=== PATIENT | female | born 1945 | race Hispanic/Latino ===

== ENCOUNTER 2017-04-07 11:45 | Emergency (ER) | payer MEDICARE ==
[2017-04-07 12:04] VITALS: RESP 18; TEMP 98.7
[2017-04-07 12:10] VITALS: BMI 19.3
--- NOTE | 2017-04-07 13:12 | ED PDOC ---
Arrival/HPI - General Chief Complaint: Abnormal Labs Time Seen by Provider: 04/07/17 12:17 Historian: Patient - History of Present Illness Narrative History of Present Illness (Text): 04/07/17 12:20 A 72 year old female is sent into the emergency department by PMD for anemia. Patient reports she went to her PMD for a routine blood work and today she was told to come into the emergency department. Patient is unable to tell us what her hemoglobin levels is. Patient denies any bleeding, hematochezia, hematemesis , hematuria, chest pain, shortness of breath or any other complaints at this time. PMD : Dr. Best Past Medical History - Provider Review Nursing Documentation Reviewed: Yes - Infectious Disease Hx of Infectious Diseases: None - Tetanus Immunization Tetanus Immunization: Unknown - Reproductive Menopause: Yes - Cardiac Hx Cardiac Disorders: Yes Hx Heart Murmur: Yes Hx Hypertension: Yes - Pulmonary Hx Respiratory Disorders: No - Neurological Hx Neurological Disorder: No - HEENT Hx HEENT Disorder: No - Renal Hx Renal Disorder: No - Endocrine/Metabolic Hx Endocrine Disorders: Yes Hx Diabetes Mellitus Type 2: Yes - Hematological/Oncological Hx Blood Disorders: No - Integumentary Hx Dermatological Disorder: No - Musculoskeletal/Rheumatological Hx Musculoskeletal Disorders: Yes Hx Fractures: Yes (right ankle) - Gastrointestinal Hx Gastrointestinal Disorders: No - Genitourinary/Gynecological Hx Genitourinary Disorders: No - Psychiatric Hx Psychophysiologic Disorder: No Hx Substance Use: No - Surgical History Hx Orthopedic Surgery: Yes (right ankle) - Anesthesia Hx Anesthesia Reactions: No Hx Malignant Hyperthermia: No - Suicidal Assessment Feels Threatened In Home Enviroment: No Family/Social History - Physician Review Nursing Documentation Reviewed: Yes Family/Social History: Unknown Family HX Smoking Status: Never Smoked Hx Alcohol Use: No Hx Substance Use: No Hx Substance Use Treatment: No Allergies/Home Meds Allergies/Adverse Reactions: Allergies Penicillins Allergy (Verified 04/07/17 12:04) .unknown Home Medications: Home Meds Medication Instructions Recorded Confirmed Glipizide [Glipizide ER] 2.5 mg PO BID 07/28/16 07/28/16 Hydrocortisone Ema 0.2% Cr 0.2 % TOP BID 07/28/16 07/28/16 [Westcort] Lisinopril [Zestril] 40 mg PO DAILY 07/28/16 07/28/16 Simvastatin 10 mg PO DAILY 07/28/16 07/28/16 metFORMIN [glucOPHAGE] 500 mg PO BID 07/28/16 07/28/16 Review of Systems - Review of Systems Constitutional: absent: Fevers Eyes: absent: Vision Changes ENT: absent: Sinus Congestion Respiratory: absent: SOB, Cough Cardiovascular: absent: Chest Pain Gastrointestinal: absent: Abdominal Pain, Hematochezia, Hematemesis Genitourinary Female: absent: Dysuria, Hematuria Musculoskeletal: absent: Back Pain Skin: absent: Rash Neurological: absent: Headache, Dizziness Psychiatric: absent: Depression Physical Exam Vital Signs Reviewed: Yes Vital Signs Temp Pulse Resp BP Pulse Ox 04/07/17 17:26 65 18 128/68 98 04/07/17 16:25 67 18 125/67 98 04/07/17 15:22 69 18 127/69 98 04/07/17 11:57 98.7 F 72 18 129/72 100 Temperature: Afebrile Blood Pressure: Normal Pulse: Regular Respiratory Rate: Normal Appearance: Positive for: Well-Appearing, Non-Toxic, Comfortable Pain Distress: None Mental Status: Positive for: Alert and Oriented X 3 - Systems Exam Head: Present: Atraumatic, Normocephalic Pupils: Present: PERRL Extroacular Muscles: Present: EOMI Conjunctiva: Present: Normal Mouth: Present: Moist Mucous Membranes Neck: Present: Normal Range of Motion Respiratory/Chest: Present: Clear to Auscultation, Good Air Exchange. No: Respiratory Distress, Accessory Muscle Use Cardiovascular: Present: Regular Rate and Rhythm, Normal S1, S2. No: Murmurs Abdomen: Present: Normal Bowel Sounds. No: Tenderness, Distention, Peritoneal Signs Back: Present: Normal Inspection Upper Extremity: Present: Normal Inspection. No: Cyanosis, Edema Lower Extremity: Present: Other (thin ). No: Edema Neurological: Present: GCS=15, CN II-XII Intact, Speech Normal Skin: Present: Warm, Dry, Pale. No: Rashes Psychiatric: Present: Alert, Oriented x 3, Normal Insight, Normal Concentration Medical Decision Making ED Course and Treatment: 04/07/17 12:20 Impression: A 72 year old female sent in for anemia. Differential Diagnosis include but are not limited to: anemia Plan: -- Labs -- Reassess and disposition Prior Visits: Notes and results from previous visits were reviewed. The patient last presented to the emergency department on 07/28/16 for evaluation after a fall. Progress Notes: 04/07/17 14:12 Guaiac positive brown stool. Hgb:8.7. Spoke to Dr. Mcelroy. He reports that patient's hgb last week was 9. He reports that her baseline is 10. He is requesting consult to Dr. Sanabria, GI Serial hgbs are unchanged. She is hemodynamically stable. Patient evaluated by GI and arranged for outpatient endoscopy on Monday. - Lab Interpretations Lab Results: 04/07/17 13:25 04/07/17 13:25 Lab Results 04/07/17 13:25: Blood Type A NEGATIVE, Antibody Screen Negative, Crossmatch See Detail, BBK History Checked No verified bt 04/07/17 13:25: Sodium 141, Potassium 4.0, Chloride 109 H, Carbon Dioxide 20 L, Anion Gap 16, BUN 41 H, Creatinine 1.4, Est GFR ( Amer) 45, Est GFR (Non- Af Amer) 37, Random Glucose 73, Calcium 9.3, Total Bilirubin 0.4, AST 24, ALT 28 , Alkaline Phosphatase 73, Total Protein 7.1, Albumin 3.9, Globulin 3.1, Albumin /Globulin Ratio 1.3 04/07/17 13:25: PT 10.4, INR 0.96, APTT 24.1 04/07/17 13:25: WBC 5.3 D, RBC 2.91 L, Hgb 8.7 L, Hct 27.1 L, MCV 93.1, MCH 29.9, MCHC 32.1, RDW 12.3, Plt Count 277, MPV 8.5, Gran % 57.8, Lymph % (Auto) 30.8, [place] % (Auto) 8.7 H, Eos % (Auto) 2.1, Baso % (Auto) 0.6, Gran # 3.04, Lymph # 1.6, [place] # 0.5, Eos # 0.1, Baso # 0.03 I have reviewed the lab results: Yes - Medication Orders Current Medication Orders: Discontinued Medications Sodium Chloride (Sodium Chloride 0.9%) 1,000 mls @ 999 mls/hr IV .Q1H1M STA Stop: 04/07/17 15:04 Last Admin: 04/07/17 17:10 Dose: 999 mls/hr - Scribe Statement The provider has reviewed the documentation as recorded by the Tanyaibe Adalberto Iglesias Provider Jovani Attestation: All medical record entries made by the Scribe were at my direction and personally dictated by me. I have reviewed the chart and agree that the record accurately reflects my personal performance of the history, physical exam, medical decision making, and the department course for this patient. I have also personally directed, reviewed, and agree with the discharge instructions and disposition. Disposition/Present on Arrival - Present on Arrival Any Indicators Present on Arrival: No History of DVT/PE: No History of Uncontrolled Diabetes: No Urinary Catheter: No History of Decub. Ulcer: No History Surgical Site Infection Following: None - Disposition Have Diagnosis and Disposition been Completed?: Yes Diagnosis: Anemia Disposition: HOME/ ROUTINE Disposition Time: 17:22 Patient Plan: Discharge Patient Problems: Current Active Problems Problem Status Onset Anemia Acute Condition: GOOD Discharge Instructions (ExitCare): Anemia (ED) Additional Instructions: Follow up with Dr. Sanabria on Monday morning at Same Day surgery at [facility]. Do not eat anything after midnight. Referrals: Beto Best MD [Primary Care Provider] - Follow up with primary Ekta Sanabria MD [Medical Doctor] - Follow up with primary
[2017-04-07 13:47] LABS: BASO # 0.03 K/mm3 (0.0-2.0); BASO % 0.6 % (0.0-3.0); EOS # 0.1 (0.0-0.7); EOS % 2.1 % (1.5-5.0); GRAN # 3.04 (1.4-6.5); GRAN % 57.8 % (50.0-68.0); HEMOGLOBIN 8.7 gm/dL (12.0-16.0); LYMPH # 1.6 (1.2-3.4); LYMPH % 30.8 % (22.0-35.0); MEAN CELL VOLUME 93.1 fL (80.0-105.0); MEAN CORPUSCULAR HEMOGLOBIN 29.9 pg (25.0-35.0); MEAN CORPUSCULAR HGB CONC 32.1 g/dl (31.0-37.0); MEAN PLATELET VOLUME 8.5 fl (7.0-11.0); MONO # 0.5 (0.1-0.6); MONO % 8.7 % (1.0-6.0); PLATELET COUNT 277 10^3/uL (120.0-450.0); RBC 2.91 10^6/uL (3.5-6.1); RED CELL DISTRIBUTION WIDTH 12.3 % (11.5-14.5); WHITE BLOOD COUNT 5.3 10^3/ul (4.5-11.0)
[2017-04-07 13:57] LABS: INR 0.96 (0.93-1.08); PARTIAL THROMBOPLASTIN TIME 24.1 Seconds (23.7-30.8); PROTHROMBIN TIME 10.4 Seconds (9.9-11.8)
[2017-04-07 14:00] LABS: ALB/GLOB RATIO 1.3 (1.1-1.8); ALBUMIN 3.9 g/dL (3.0-4.8); CALCIUM 9.3 mg/dL (8.4-10.5)
[2017-04-07] MEDS ORDERED: Sodium Chloride 0.9% 1,000 ML IV STA (14:04)
[2017-04-07 15:23] VITALS: O2SAT 98
[2017-04-07 17:26] VITALS: BP 128/68; PULSE 65
--- NOTE | 2017-04-07 23:45 | CP.PCM.CON ---
History of Present Illness - History of Present Illness History of Present Illness: this patient Past Patient History - Infectious Disease Hx of Infectious Diseases: None - Tetanus Immunizations Tetanus Immunization: Unknown - Past Social History Smoking Status: Never Smoked - CARDIAC Hx Cardiac Disorders: Yes Hx Heart Murmur: Yes Hx Hypertension: Yes - PULMONARY Hx Respiratory Disorders: No - NEUROLOGICAL Hx Neurological Disorder: No - HEENT Hx HEENT Problems: No - RENAL Hx Chronic Kidney Disease: No - ENDOCRINE/METABOLIC Hx Endocrine Disorders: Yes Hx Diabetes Mellitus Type 2: Yes - HEMATOLOGICAL/ONCOLOGICAL Hx Blood Disorders: No - INTEGUMENTARY Hx Dermatological Problems: No - MUSCULOSKELETAL/RHEUMATOLOGICAL Hx Musculoskeletal Disorders: Yes Hx Fractures: Yes (right ankle) - GASTROINTESTINAL Hx Gastrointestinal Disorders: No - GENITOURINARY/GYNECOLOGICAL Hx Genitourinary Disorders: No - PSYCHIATRIC Hx Psychophysiologic Disorder: No Hx Substance Use: No - SURGICAL HISTORY Hx Orthopedic Surgery: Yes (right ankle) - ANESTHESIA Hx Anesthesia Reactions: No Hx Malignant Hyperthermia: No Meds Allergies/Adverse Reactions: Allergies Allergy/AdvReac Type Severity Reaction Status Date / Time Penicillins Allergy .unknown Verified 04/07/17 12:04 Results - Vital Signs Recent Vital Signs: Last Vital Signs Temp 98.7 F 04/07/17 11:57 Pulse 65 04/07/17 17:26 Resp 18 04/07/17 17:26 BP 128/68 04/07/17 17:26 Pulse Ox 98 04/07/17 17:26 - Labs Result Diagrams: 04/07/17 13:25 04/07/17 13:25 Labs: Laboratory Results - last 24 hr 04/07/17 04/07/17 04/07/17 13:25 13:25 13:25 WBC 5.3 D RBC 2.91 L Hgb 8.7 L Hct 27.1 L MCV 93.1 MCH 29.9 MCHC 32.1 RDW 12.3 Plt Count 277 MPV 8.5 Gran % 57.8 Lymph % (Auto) 30.8 [place] % (Auto) 8.7 H Eos % (Auto) 2.1 Baso % (Auto) 0.6 Gran # 3.04 Lymph # 1.6 [place] # 0.5 Eos # 0.1 Baso # 0.03 PT 10.4 INR 0.96 APTT 24.1 Sodium 141 Potassium 4.0 Chloride 109 H Carbon Dioxide 20 L Anion Gap 16 BUN 41 H Creatinine 1.4 Est GFR ( Amer) 45 Est GFR (Non-Af Amer) 37 Random Glucose 73 Calcium 9.3 Total Bilirubin 0.4 AST 24 ALT 28 Alkaline Phosphatase 73 Total Protein 7.1 Albumin 3.9 Globulin 3.1 Albumin/Globulin Ratio 1.3 Blood Type Antibody Screen Crossmatch BBK History Checked 04/07/17 13:25 WBC RBC Hgb Hct MCV MCH MCHC RDW Plt Count MPV Gran % Lymph % (Auto) [place] % (Auto) Eos % (Auto) Baso % (Auto) Gran # Lymph # [place] # Eos # Baso # PT INR APTT Sodium Potassium Chloride Carbon Dioxide Anion Gap BUN Creatinine Est GFR ( Amer) Est GFR (Non-Af Amer) Random Glucose Calcium Total Bilirubin AST ALT Alkaline Phosphatase Total Protein Albumin Globulin Albumin/Globulin Ratio Blood Type A NEGATIVE Antibody Screen Negative Crossmatch See Detail BBK History Checked No verified bt Assessment & Plan - Assessment and Plan (Free Text) Plan: this
== END 2017-04-07 17:45 | disposition home or self-care (01) ==
LOC: ED 11:45
DX: D64.9 Anemia, unspecified (principal); I10 Essential (primary) hypertension; R01.1 Cardiac murmur, unspecified
CPT/HCPCS: 80053; 85025; 85610; 85730; 86850; 86900; 99282; J7040

== ENCOUNTER 2017-04-10 07:16 | Day surgery (SDC) | payer MEDICARE ==
[2017-04-10] MEDS ORDERED: Lactated Ringer's 1,000 ML IV SCH (08:06)
[2017-04-10] MEDS ORDERED: Propofol 10 mg/ml Inj (20 ML) ONE (08:13)
[2017-04-10 08:14] LABS: BASO # 0.05 K/mm3 (0.0-2.0); BASO % 0.7 % (0.0-3.0); EOS # 0.3 (0.0-0.7); EOS % 3.5 % (1.5-5.0); GRAN # 4.44 (1.4-6.5); GRAN % 58.2 % (50.0-68.0); HEMOGLOBIN 8.7 gm/dL (12.0-16.0); LYMPH # 2.2 (1.2-3.4); LYMPH % 29.1 % (22.0-35.0); MEAN CELL VOLUME 93.9 fL (80.0-105.0); MEAN CORPUSCULAR HEMOGLOBIN 29.6 pg (25.0-35.0); MEAN CORPUSCULAR HGB CONC 31.5 g/dl (31.0-37.0); MONO # 0.7 (0.1-0.6); MONO % 8.5 % (1.0-6.0); PLATELET COUNT 291 10^3/uL (120.0-450.0); RBC 2.94 10^6/uL (3.5-6.1); RED CELL DISTRIBUTION WIDTH 12.4 % (11.5-14.5); WHITE BLOOD COUNT 7.6 10^3/ul (4.5-11.0)
[2017-04-10] MEDS ORDERED: Lidocaine 1% Inj (20ml) ONE (08:14)
[2017-04-10] MEDS ORDERED: Etomidate 20 mg/10ml Inj IV ONE (08:14)
[2017-04-10 10:24] VITALS: BP 125/65; PULSE 82; RESP 21; TEMP 97.5; O2SAT 99
--- NOTE | 2017-04-10 17:39 | CARD ---
APPROVED REPORT EKG Measurement Heart [id number] [id number] <Conclusion> Normal sinus rhythm Normal ECG
[2017-04-11] MEDS ORDERED: Propofol 10 mg/ml Inj (20 ML) ONE (12:13)
== END 2017-04-10 11:36 | disposition home or self-care (01) ==
LOC: ENDO 07:16
PROVIDERS: ATTEND Internal Medicine Gastroenterology
DX: K22.10 Ulcer of esophagus without bleeding (principal); K44.9 Diaphragmatic hernia without obstruction or gangrene; T18.2XXA Foreign body in stomach, initial encounter; D50.9 Iron deficiency anemia, unspecified; I10 Essential (primary) hypertension; E11.9 Type 2 diabetes mellitus without complications; Z79.84 Long term (current) use of oral hypoglycemic drugs
CPT/HCPCS: 36415; 43235; 82948; 85025; 93005; J2704; J3010; J7040; J7120

== ENCOUNTER 2017-04-11 09:01 | Day surgery (SDC) | payer MEDICARE ==
[2017-04-10 11:32] VITALS: BMI 19.1
[2017-04-11] MEDS ORDERED: Sodium Chloride 0.9% 1,000 ML IV SCH (12:30)
[2017-04-11 13:32] VITALS: BP 117/61; PULSE 75; RESP 18; TEMP 98.1; O2SAT 100
== END 2017-04-11 14:30 | disposition home or self-care (01) ==
LOC: ENDO 09:01
PROVIDERS: ATTEND Internal Medicine Gastroenterology
DX: K25.9 Gastric ulcer, unspecified as acute or chronic, without hemorrhage or perforation (principal); K29.50 Unspecified chronic gastritis without bleeding; K44.9 Diaphragmatic hernia without obstruction or gangrene; K31.89 Other diseases of stomach and duodenum; D50.9 Iron deficiency anemia, unspecified; G80.9 Cerebral palsy, unspecified; I10 Essential (primary) hypertension; I25.10 Atherosclerotic heart disease of native coronary artery without angina pectoris; E11.9 Type 2 diabetes mellitus without complications; E78.5 Hyperlipidemia, unspecified; I25.2 Old myocardial infarction; Z79.84 Long term (current) use of oral hypoglycemic drugs
CPT/HCPCS: 43239; 82948; 88305; 88342; J2704; J7040 ×2

== ENCOUNTER 2017-09-06 13:33 | Observation (INO) | payer MEDICARE, OTHER ==
[2017-09-06 13:51] VITALS: BMI 20.9
--- NOTE | 2017-09-06 14:14 | ED PDOC ---
Arrival/HPI - General Chief Complaint: Abnormal Labs Time Seen by Provider: 09/06/17 13:43 Historian: Patient - History of Present Illness Narrative History of Present Illness (Text): 09/06/17 14:04 A 72 year old female, whose past medical history includes hypertension and cholesterol problem, is accompanied by family members, and presents to the emergency department complaining of anemia. Per family, patient was taken for blood work 2 days ago. Today, PMD requested patient to go immediately to the ER due to results revealing patient has anemia. Patient has no other complaints. PMD: Dr. Best Past Medical History - Provider Review Nursing Documentation Reviewed: Yes - Infectious Disease Hx of Infectious Diseases: None - Tetanus Immunization Tetanus Immunization: Unknown - Reproductive Menopause: Yes - Cardiac Hx Cardiac Disorders: Yes Hx Heart Murmur: Yes Hx Hypertension: Yes - Pulmonary Hx Respiratory Disorders: No - Neurological Hx Neurological Disorder: No - HEENT Hx HEENT Disorder: No - Renal Hx Renal Disorder: No - Endocrine/Metabolic Hx Endocrine Disorders: Yes Hx Diabetes Mellitus Type 2: Yes - Hematological/Oncological Hx Blood Disorders: No - Integumentary Hx Dermatological Disorder: No - Musculoskeletal/Rheumatological Hx Musculoskeletal Disorders: Yes (FX RIGHT ANKLE GAIT INSTABILITY) - Gastrointestinal Hx Gastrointestinal Disorders: No - Genitourinary/Gynecological Hx Genitourinary Disorders: No - Psychiatric Hx Psychophysiologic Disorder: No Hx Substance Use: No - Surgical History Hx Orthopedic Surgery: Yes (right ankle) - Anesthesia Hx Anesthesia Reactions: No Hx Malignant Hyperthermia: No - Suicidal Assessment Feels Threatened In Home Enviroment: No Family/Social History - Physician Review Nursing Documentation Reviewed: Yes Family/Social History: No Known Family HX Smoking Status: Never Smoked Hx Alcohol Use: Yes (SOCIAL) Hx Substance Use: No Hx Substance Use Treatment: No Allergies/Home Meds Allergies/Adverse Reactions: Allergies Penicillins Allergy (Verified 09/06/17 14:07) .unknown Home Medications: Home Meds Medication Instructions Recorded Confirmed Lisinopril [Zestril] 40 mg PO DAILY 07/28/16 09/06/17 Simvastatin 10 mg PO HS 07/28/16 09/06/17 metFORMIN [glucOPHAGE] 500 mg PO BID 07/28/16 09/06/17 Furosemide [Lasix] 20 mg PO DAILY 04/07/17 09/06/17 Metoprolol Succinate [Metoprolol 25 mg PO DAILY 04/07/17 09/06/17 Succinate] diltiaZEM [Cardizem] 30 mg PO BID 04/07/17 09/06/17 Omeprazole 40 mg PO DAILY 04/11/17 09/06/17 Calcium/Chloride/Magnesium [Mag64 0 mg PO DAILY 09/06/17 09/06/17 110 MG-186.8 MG-64 MG] D3 Daily 1,000 iu PO DAILY 09/06/17 09/06/17 Glipizide [Glipizide Xl] 2.5 mg PO BID 09/06/17 09/06/17 Omeprazole 40 mg PO DAILY 09/06/17 09/06/17 Review of Systems - Physician Review All systems were reviewed & negative as marked: Yes - Review of Systems Constitutional: absent: Fevers Gastrointestinal: absent: Abdominal Pain Physical Exam Vital Signs Reviewed: Yes Vital Signs Temp Pulse Resp BP Pulse Ox 09/06/17 18:10 97.7 F 75 18 112/55 L 100 09/06/17 18:03 80 18 112/55 L 100 09/06/17 17:55 97.7 F 79 18 112/55 L 09/06/17 17:33 97.5 F L 81 18 112/55 L 100 09/06/17 13:46 97.8 F 97 H 18 125/62 99 Temperature: Afebrile Blood Pressure: Normal Pulse: Regular Respiratory Rate: Normal Appearance: Positive for: Well-Appearing Pain Distress: None Mental Status: Positive for: Alert and Oriented X 3 - Systems Exam Head: Present: Atraumatic, Normocephalic Pupils: Present: PERRL Extroacular Muscles: Present: EOMI Conjunctiva: Present: Normal Mouth: Present: Moist Mucous Membranes Neck: Present: Normal Range of Motion Respiratory/Chest: Present: Clear to Auscultation, Good Air Exchange. No: Respiratory Distress, Accessory Muscle Use Cardiovascular: Present: Regular Rate and Rhythm, Normal S1, S2. No: Murmurs Abdomen: Present: Normal Bowel Sounds. No: Tenderness, Distention, Peritoneal Signs Rectal: No: Other (brown stool, guaiac negative) Back: Present: Normal Inspection Upper Extremity: Present: Normal Inspection. No: Cyanosis, Edema Lower Extremity: Present: Normal Inspection. No: Edema Neurological: Present: GCS=15, CN II-XII Intact, Speech Normal Skin: Present: Warm, Dry, Normal Color. No: Rashes Psychiatric: Present: Alert, Oriented x 3, Normal Insight, Normal Concentration Medical Decision Making ED Course and Treatment: 09/06/17 14:08 Impression: 72 year old female accompanied by family sent in by PMD for evaluation. Physical exam is benign; rectal exam shows brown stool, guaiac negative. Plan: -- Labs -- Urinalysis -- Reassess and disposition Prior Visits: Notes and results from previous visits were reviewed. Patient was last seen in the emergency department on 04/07/2017 for evaluation due to blood work results. Patient was d/c home. Progress Notes: - Lab Interpretations Lab Results: 09/06/17 15:00 09/06/17 15:00 Lab Results 09/06/17 15:00: Blood Type A NEGATIVE, Antibody Screen Negative, Crossmatch See Detail, BBK History Checked Patient has bt 09/06/17 15:00: Sodium 142, Potassium 4.1, Chloride 112 H, Carbon Dioxide 15 L, Anion Gap 20, BUN 40 H, Creatinine 1.4 H, Est GFR ( Amer) 45, Est GFR ( Non-Af Amer) 37, Random Glucose 89, Calcium 10.0, Total Bilirubin 0.4, AST 32, ALT 26, Alkaline Phosphatase 80, Total Protein 7.7, Albumin 4.3, Globulin 3.4, Albumin/Globulin Ratio 1.3, Lipase 466 H 09/06/17 15:00: Urine Color Yellow, Urine Appearance Sl cloudy, Urine pH 6.0, Ur Specific [place] 1.015, Urine Protein Negative, Urine Glucose (UA) Negative, Urine Ketones Negative, Urine Blood Negative, Urine Nitrate Negative, Urine Bilirubin Negative, Urine Urobilinogen 0.2, Ur Leukocyte Esterase Small H, Urine RBC Negative, Urine WBC 15 - 20, Ur Epithelial Cells 10 - 12, Urine Bacteria Mod 09/06/17 15:00: PT 11.1, INR 1.02, APTT 25.7 09/06/17 15:00: WBC 7.9, RBC 3.05 L, Hgb 8.5 L, Hct 27.3 L, MCV 89.5, MCH 27.9, MCHC 31.1, RDW 14.2, Plt Count 322, MPV 8.6, Gran % 65.9, Lymph % (Auto) 24.0, [place] % (Auto) 6.9 H, Eos % (Auto) 2.3, Baso % (Auto) 0.9, Gran # 5.18, Lymph # 1.9, [place] # 0.5, Eos # 0.2, Baso # 0.07 - Medication Orders Current Medication Orders: Diltiazem HCl (Cardizem) 30 mg PO BID [facility] Last Admin: 09/07/17 10:51 Dose: 30 mg MAR Pulse and Blood Pressure Document 09/07/17 10:51 DSZ (Rec: 09/07/17 10:51 [email or web address]) Pulse Pulse Rate (60-90) 67 Blood Pressure Blood Pressure (100/60-150/90) 139/74 Sodium Chloride (Sodium Chloride 0.9%) 1,000 mls @ 100 mls/hr IV .Q10H [facility] Last Admin: 09/07/17 10:54 Dose: 100 mls/hr eMAR Start Stop Document 09/07/17 10:54 [facility] (Rec: 09/07/17 10:54 [email or web address]) Intravenous Solution Start Date 09/07/17 Start Time 10:54 Insulin Human Regular (Humulin R Low) 0 units SC ACHS [facility] PRN Reason: Protocol Last Admin: 09/07/17 08:08 Dose: Not Given Non-Admin Reason: Blood Sugar Parameter [facility] Blood Glucose Document 09/07/17 08:08 DSZ (Rec: 09/07/17 08:08 [email or web address]) Blood Glucose Finger Stick Blood Glucose (70-120) 71 Lisinopril (Zestril) 40 mg PO DAILY [facility] Last Admin: 09/07/17 10:51 Dose: 40 mg Metoprolol Succinate (Toprol Xl) 25 mg PO DAILY [facility] Last Admin: 09/07/17 10:51 Dose: 25 mg MAR Pulse and Blood Pressure Document 09/07/17 10:51 DSZ (Rec: 09/07/17 10:51 [email or web address]) Pulse Pulse Rate (60-90) 67 Blood Pressure Blood Pressure (100/60-150/90) 139/74 Polyethylene Glycol/Electrolytes (Golytely) 4,000 ml PO ONCE ONE Stop: 09/07/17 14:01 Discontinued Medications Pneumococcal Polyvalent Vaccine (Pneumovax 23 Vaccine) 0.5 ml IM .ONCE ONE Stop: 09/06/17 22:35 - Scribe Statement The provider has reviewed the documentation as recorded by the Jovani Brown Provider Scribe Attestation: All medical record entries made by the Scribe were at my direction and personally dictated by me. I have reviewed the chart and agree that the record accurately reflects my personal performance of the history, physical exam, medical decision making, and the department course for this patient. I have also personally directed, reviewed, and agree with the discharge instructions and disposition. Disposition/Present on Arrival - Present on Arrival Any Indicators Present on Arrival: No History of DVT/PE: No History of Uncontrolled Diabetes: No Urinary Catheter: No History of Decub. Ulcer: No History Surgical Site Infection Following: None - Disposition Have Diagnosis and Disposition been Completed?: Yes Diagnosis: Anemia Disposition: HOSPITALIZED Disposition Time: 06:00 Condition: STABLE
[2017-09-06 15:21] LABS: BASO # 0.07 K/mm3 (0.0-2.0); BASO % 0.9 % (0.0-3.0); EOS # 0.2 (0.0-0.7); EOS % 2.3 % (1.5-5.0); GRAN # 5.18 (1.4-6.5); GRAN % 65.9 % (50.0-68.0); HEMATOCRIT 27.3 % (36.0-48.0); LYMPH # 1.9 (1.2-3.4); MEAN CELL VOLUME 89.5 fl (80.0-105.0); MEAN CORPUSCULAR HEMOGLOBIN 27.9 pg (25.0-35.0); MEAN CORPUSCULAR HGB CONC 31.1 g/dl (31.0-37.0); MEAN PLATELET VOLUME 8.6 fl (7.0-11.0); MONO # 0.5 (0.1-0.6); MONO % 6.9 % (1.0-6.0); RED CELL DISTRIBUTION WIDTH 14.2 % (11.5-14.5); URINE BILIRUBIN NEGATIVE (NEGATIVE); URINE BLOOD NEGATIVE (NEGATIVE); URINE GLUCOSE (UA) NEGATIVE (NEGATIVE); URINE KETONE NEGATIVE (NEGATIVE); URINE LEUKOCYTE ESTERASE SMALL Leu/uL (NEGATIVE); URINE PROTEIN NEGATIVE mg/dL (<30 mg/dL); URINE UROBILINOGEN 0.2 E.U./dL (<1 E.U./dL); WHITE BLOOD COUNT 7.9 10^3/ul (4.5-11.0)
[2017-09-06 15:27] LABS: URINE COLOR YELLOW (YELLOW)
[2017-09-06 15:31] LABS: ALB/GLOB RATIO 1.3 (1.1-1.8); BILIRUBIN,TOTAL 0.4 mg/dL (0.2-1.3); TOTAL PROTEIN 7.7 g/dL (5.8-8.3)
[2017-09-06 15:35] LABS: INR 1.02 (0.93-1.08); PARTIAL THROMBOPLASTIN TIME 25.7 Seconds (25.1-36.5); POTASSIUM 4.1 mmol/L (3.6-5.0)
[2017-09-06 15:41] LABS: URINE APPEARANCE SL CLOUDY (CLEAR); URINE BACTERIA MOD (NEG); URINE RBC NEGATIVE /hpf (0-2); URINE WBC 15 - 20 /hpf (0-6)
[2017-09-06] MEDS ORDERED: Influenza Vaccine 60 mcg/0.5 mL SYR (4YR UP) IM ONE (22:34)
[2017-09-06] MEDS ORDERED: Pneumococcal 23-Valent Vaccine IM ONE (22:34)
[2017-09-06] MEDS: Insulin Reg-LOW-Coverage SC SCH (23:32)
[2017-09-07 07:41] LABS: HEMATOCRIT 29.9 % (36.0-48.0); MEAN CELL VOLUME 88.7 fl (80.0-105.0); MEAN CORPUSCULAR HEMOGLOBIN 28.8 pg (25.0-35.0); MEAN CORPUSCULAR HGB CONC 32.4 g/dl (31.0-37.0); MEAN PLATELET VOLUME 8.8 fl (7.0-11.0); RED CELL DISTRIBUTION WIDTH 13.9 % (11.5-14.5); WHITE BLOOD COUNT 6.1 10^3/ul (4.5-11.0)
[2017-09-07] MEDS: Insulin Reg-LOW-Coverage SC SCH ×4 (08:08→22:12)
[2017-09-07 08:56] LABS: ALB/GLOB RATIO 1.2 (1.1-1.8); BILIRUBIN,TOTAL 0.6 mg/dL (0.2-1.3); CALCIUM 9.4 mg/dL (8.4-10.5); POTASSIUM 4.5 mmol/L (3.6-5.0); TOTAL PROTEIN 6.3 g/dL (5.8-8.3)
[2017-09-07] MEDS ORDERED: Etomidate 20 mg/10ml Inj IV ONE (09:07)
[2017-09-07 09:09] LABS: IRON 145 ug/dL (45-180)
[2017-09-07] MEDS ORDERED: Propofol 10 mg/ml Inj (20 ML) ONE (09:24)
[2017-09-07] MEDS ORDERED: Sodium Chloride 0.9% 1,000 ML IV SCH (09:45)
--- NOTE | 2017-09-07 09:59 | HP ---
CHIEF COMPLAINT AND HISTORY OF PRESENT ILLNESS: This is a 72-year-old female who is coming into the hospital after she was found to have low hemoglobin on CBC that was done by her primary care doctor, Dr. Best. The patient denied any chest pain. No shortness of breath. No headaches. She does have a history of hypertension and dyslipidemia. She was brought in by her family. The patient has no fevers or chills. No nausea. No dysuria or frequency. No nocturia. She denies any shortness of breath with exertion. REVIEW OF SYSTEMS: All the review of symptoms are within normal limits except as mentioned. ALLERGIES: PENICILLIN. HOME MEDICATIONS: Lisinopril, simvastatin, metformin, Lasix, metoprolol, Cardizem, glipizide, and omeprazole. PAST MEDICAL HISTORY: Diabetes type 2, dyslipidemia, hypertension, and childhood polio. PAST SURGICAL HISTORY: Right ankle fracture. FAMILY HISTORY: Noncontributory. SOCIAL HISTORY: She does not smoke, drink or use drugs. PHYSICAL EXAMINATION: VITAL SIGNS: Temperature is 97.7, pulse is 75, blood pressure is 112/58, and respirations are 18. Height is 4 feet 10 inches, weight is 100 pounds, and BMI is 20.9. GENERAL: The patient lying in bed, uncomfortable, and in no acute distress. HEENT: Atraumatic and normocephalic. Anicteric sclerae. Moist mucosa. [place] conjunctivae. No oral lesions. NECK: No JVD, anterior and posterior adenopathy, thyromegaly, or bruits. CARDIOVASCULAR: S1 and S2 regular. No murmur, rubs, or gallop. LUNGS: Clear to auscultation bilaterally. No wheezes, rales, or rhonchi. ABDOMEN: Bowel sounds are positive. Soft, nontender and nondistended. No hepatosplenomegaly. No rebound and no guarding. EXTREMITIES: No cyanosis, clubbing, or edema. NEUROLOGIC: No facial asymmetry. Tongue is midline. No uvula deviation. Power is 5/5 upper extremity and lower extremity. Sensation intact in upper extremity and lower extremity. PSYCHIATRIC: She is awake, alert and oriented x3. No anxiety or depression. She has normal affect. GENITOURINARY: No CVA tenderness. VASCULAR: 2+ pulses in the carotid pulses and pedal pulses. SKIN: No erythema or nodules. SPINE: Shows normal curvature. LABORATORY DATA: White count is 7.9 and hemoglobin is 8.5, repeat is 9.7. Creatinine is 1.4. The patient's baseline creatinine is 1.4 in 04/2017. Urine shows esterase is small, RBC's is negative, WBC's is negative. ASSESSMENT: 1. Anemia, acute, unknown etiology. 2. Diabetes type 2. 3. Hypertension. 4. Dyslipidemia. 5. Mitral regurgitation. 6. Childhood polio. 7. Chronic kidney disease, stage III. PLAN: The patient is going to be admitted to the hospital. She is on lisinopril for her hypertension. She is going to continue with metoprolol. The patient is going to be on insulin sliding scale. I will hold her metformin and glipizide. She is probably n.p.o. for endoscopy today by Dr. Sanabria. The patient will need iron studies. She had been on liquid diet yesterday. She also has CKD III. We will await for the input from GI. Liu Camarillo MD
[2017-09-07] MEDS: Metoprolol Succinate 25 mg XL Tab PO SCH (10:51)
[2017-09-07] MEDS ORDERED: Peg-Electrolyte Oral Soln 4L (Golytely) PO ONE (14:00)
[2017-09-07] MEDS ORDERED: Magnesium Citrate Oral SOL (300 ml) PO ONE (19:57)
[2017-09-07] MEDS ORDERED: Bisacodyl 5mg EC Tab PO ONE (19:57)
[2017-09-08] MEDS ORDERED: Magnesium Citrate Oral SOL (300 ml) PO ONE (06:00)
[2017-09-08] MEDS ORDERED: Bisacodyl 5mg EC Tab PO ONE (06:00)
[2017-09-08 07:27] LABS: BASO # 0.05 K/mm3 (0.0-2.0); BASO % 0.7 % (0.0-3.0); EOS # 0.2 (0.0-0.7); EOS % 3.4 % (1.5-5.0); GRAN # 3.6 (1.4-6.5); HEMATOCRIT 35.2 % (36.0-48.0); LYMPH # 2.2 (1.2-3.4); LYMPH % 32.8 % (22.0-35.0); MEAN CELL VOLUME 89.6 fl (80.0-105.0); MEAN CORPUSCULAR HEMOGLOBIN 28.5 pg (25.0-35.0); MEAN CORPUSCULAR HGB CONC 31.8 g/dl (31.0-37.0); MONO # 0.6 (0.1-0.6); MONO % 9.1 % (1.0-6.0); WHITE BLOOD COUNT 6.7 10^3/ul (4.5-11.0)
[2017-09-08 07:56] LABS: ALB/GLOB RATIO 1.2 (1.1-1.8); ALKALINE PHOSPHATASE 96 U/L (38-126); ALT/SGPT 25 U/L (7-56); AST/SGOT 27 U/L (14-36); BILIRUBIN,TOTAL 0.6 mg/dL (0.2-1.3); BLOOD UREA NITROGEN 16 mg/dL (7-21); CARBON DIOXIDE 20 mmol/L (21-33); CHLORIDE 115 mmol/L (98-107); GFR AFRICAN-AMERICAN > 60; GLUCOSE,RANDOM 92 mg/dL (70-110); POTASSIUM 4.2 mmol/L (3.6-5.0); SODIUM 144 mmol/L (132-148); TOTAL PROTEIN 7.4 g/dL (5.8-8.3)
[2017-09-08] MEDS: Insulin Reg-LOW-Coverage SC SCH ×3 (08:24→17:41)
[2017-09-08] MEDS: Metoprolol Succinate 25 mg XL Tab PO SCH (09:00)
--- NOTE | 2017-09-08 12:31 | CON ---
DATE: 09/07/2017 This patient was seen and evaluated. REASON FOR CONSULTATION: Anemia, drop in blood count. HISTORY OF PRESENT ILLNESS: This is a 72-year-old patient with a past medical history of anemia, status post EGD, noticed to have Terrance ulcers. The patient did have a gastric repeat endoscopy was unable to visualize the ulceration. For gastric ulcer, the patient had been on omeprazole 40 mg daily, was found to have drop in blood count, but no obvious witnessed bleeding per rectum or melena. PAST MEDICAL HISTORY: Other past medical history is significant as above. History of diabetes mellitus, dyslipidemia, hypertension, and history of childhood polio. PAST SURGICAL HISTORY: Right ankle fracture. FAMILY HISTORY: Noncontributory. SOCIAL HISTORY: Denies smoking or alcohol. PHYSICAL EXAMINATION: VITAL SIGNS: Temperature is 97, pulse is 70, blood pressure is 118/63, respirations 20, O2 saturation 98%. HEENT: Atraumatic and anicteric. NECK: Supple. HEART: S1 and S2 heard. LUNGS: Bilateral air entry present. ABDOMEN: Soft. There is no tenderness. EXTREMITIES: No edema. No cyanosis. NEUROLOGICAL: Alert and oriented. Moves all the extremities. LABORATORY DATA: Hemoglobin 9.7 and hemoglobin initially when he came was at 8.5; hematocrit 27.3; WBC 7.9; platelets 322,000. Chemistries, BUN 40 and creatinine 1.4. IMPRESSION: This is a 72-year-old patient admitted with history of anemia, drop in blood count, no obvious bleeding, history of gastric ulcer, Terrance ulcers and gastric ulcers and the patient has been on omeprazole. The reasonable thing is to schedule for a repeat upper gastrointestinal endoscopy to further evaluate the gastric ulcer. We will also consider colonoscopy after reviewing the endoscopy report. RECOMMENDATION: 1. Continue the PPI or Protonix. 2. Advised to follow up in our office after the endoscopy evaluation. ADDENDUM: The case is discussed with the patient's brother who has been taking care of the patient well, who is also next of the kin. Thank you very much for allowing me to participate in the care of the patient. Ekta Sanabria MD
[2017-09-08] MEDS ORDERED: Propofol 10 mg/ml Inj (20 ML) ONE (13:22)
[2017-09-08] MEDS ORDERED: Midazolam 2 MG/2 ML VIAL ONE (13:22)
[2017-09-08] MEDS ORDERED: Etomidate 20 mg/10ml Inj IV ONE (13:22)
[2017-09-08 21:57] VITALS: BP 125/73; PULSE 68; RESP 18; TEMP 96.6; O2SAT 98
--- NOTE | 2017-09-09 03:27 | DS ---
HISTORY OF PRESENT ILLNESS: This is a 72-year-old female who has come into the hospital with complaints of anemia. She had an endoscopy done, which showed hiatal hernia. The patient is currently comfortable. She has colonoscopy today. If colonoscopy did not show any significant abnormality, the patient will be discharged home. PHYSICAL EXAMINATION: VITAL SIGNS: Temperature is 97.9, pulse is 75, blood pressure is 110/62, respirations 18, and O2 saturations are 98%. GENERAL: The patient is lying in bed, flat, comfortable. HEENT: No oral lesion. Anicteric sclerae. Moist mucosa. NECK: No JVD, adenopathy, or thyromegaly. CARDIOVASCULAR: S1 and S2, regular. No murmurs, rubs, or gallops. LUNGS: Clear to auscultation bilaterally. No wheeze, rales, or rhonchi. ABDOMEN: Bowel sounds are positive, soft, nontender and nondistended. EXTREMITIES: No cyanosis, clubbing or edema. ASSESSMENT: 1. Hiatal hernia. 2. Anemia from gastrointestinal bleeding. 3. Hypertension. 4. Diabetes type 2. 5. Dyslipidemia. 6. Mitral regurgitation. 7. Chronic kidney disease, stage III. 8. Childhood polio. PLAN: The patient's hemoglobin is stable at 11.2. The patient had acute kidney injury, creatinine is 1.0. She is on Cardizem. She is going to continue with metoprolol. She is on lisinopril for hypertension. She is on liquid diet. I did speak to Dr. Sanabria regarding the case yesterday. Liu Camarillo MD
== END 2017-09-08 22:05 | disposition home or self-care (01) ==
LOC: ED 13:33 → ERH 16:33 → 5RSO 19:28
PROVIDERS: ADMIT Internal Medicine Nephrology; ATTEND Internal Medicine Nephrology
DX: K92.2 Gastrointestinal hemorrhage, unspecified (principal); D50.0 Iron deficiency anemia secondary to blood loss (chronic); I12.9 Hypertensive chronic kidney disease with stage 1 through stage 4 chronic kidney disease, or unspecified chronic kidney disease; N18.3 Chronic kidney disease, stage 3 (moderate); E11.22 Type 2 diabetes mellitus with diabetic chronic kidney disease; K44.9 Diaphragmatic hernia without obstruction or gangrene; K57.30 Diverticulosis of large intestine without perforation or abscess without bleeding; K62.6 Ulcer of anus and rectum; E78.5 Hyperlipidemia, unspecified; I34.0 Nonrheumatic mitral (valve) insufficiency; K64.8 Other hemorrhoids; Z86.12 Personal history of poliomyelitis
CPT/HCPCS: 36415; 36430; 43239; 45380; 80053; 81001; 82728; 82948; 83540; 83550; 83690; 85025; 85027; 85610; 85730; 86850; 86900; 86920; 87086; 87181; 88305; 88342; 99285; G0378; J2250; J2704; J7040; P9016